=== PATIENT | female | born 1970 | race Caucasian/White ===

== ENCOUNTER 2019-07-18 01:46 | Inpatient (IN) | payer OTHER ==
[2019-07-18] VITALS (9 sets, daily range): BP systolic 108–142; BP diastolic 55–95
[~2019-07-18] VITALS: Ht 162.5 cm; Wt 100.7 kg
[2019-07-18] MEDS ORDERED: OMEPRAZOLE40 MG PO (02:21)
[2019-07-18] MEDS ORDERED: VENLAFAXINE HYD75 M3 PO (02:22)
--- NOTE | 2019-07-18 02:42 | NUR ---
[employer] CONTACTED FOR MEDICATION PER EMAR.
[2019-07-18 02:43] LABS: BASO # 0.1 10*3/uL (0.0-0.1); BASO % 0.7 % (0.0-1.0); EOS # 0.2 10*3/uL (0.0-0.4); EOS % 2.6 % (1.0-4.0); HEMATOCRIT 40.3 % (37.0-47.0); HEMOGLOBIN 12.8 g/dl (12.0-16.0); LYMPH # 2.3 10*3/uL (1.3-4.4); LYMPH % 27.3 % (27.0-41.0); MEAN CELL VOLUME 94.2 fl (81.0-99.0); MEAN CORPUSCULAR HGB 29.9 pg (27.0-31.0); MEAN CORPUSCULAR HGB CONC 31.8 g/dl (33.0-37.0); MEAN PLATELET VOLUME 9.4 fl (9.6-12.3); MONO # 0.6 10*3/uL (0.1-1.0); MONO % 7.6 % (3.0-9.0); NEUT # 5.1 10*3/uL (2.3-7.9); NEUT % 61.6 % (47.0-73.0); PLATELET COUNT AUTOMATED 328 10*3/uL (130-400); RED BLOOD COUNT 4.28 10*6/uL (4.10-5.10); RED CELL DISTRI WIDTH 13.5 % (0-14.5); WHITE BLOOD COUNT 8.3 10*3/uL (4.8-10.8)
[2019-07-18 02:57] LABS: ALBUMIN 3.1 gm/dl (3.1-4.5); ALKALINE PHOSPHATASE 131 U/L (45-117); BUN 11 mg/dl (7-24); CHLORIDE 107 mmol/L (98-107); CREATININE 0.82 mg/dL (0.55-1.02); POTASSIUM 3.6 mmol/L (3.5-5.1); SGOT/AST 12 IU/L (3-35); SGPT/ALT 19 U/L (12-78); SODIUM 139 mmol/L (136-145); TOTAL PROTEIN 7.9 gm/dL (6.4-8.2)
--- NOTE | 2019-07-18 05:00 | NUR ---
Time: 0500 A 48 year old f admitted to under services of EDA HAWTHORNE DO. Pt. arrived via [facility] from ER. Chief complaint: abscess right breast since 06/03. on 3 different out-pt antibiotics without improvement. JEREMIAH CHRIS
--- NOTE | 2019-07-18 05:52 | NUR ---
medicated with morphine iv per prn order for complaints of right breast pain rating a 9. call light within reach. will monitor for effectiveness
--- NOTE | 2019-07-18 06:30 | NUR ---
morphine effective. sleeping. iv fluids maintained. call light within reach
--- NOTE | 2019-07-18 07:09 | NUR ---
RODRIGO FARRIS [id number] Please refer to the physician's history and physical for past medical history, comorbid conditions, and allergies. Diagnosis: CELLULITIS OF RIGHT BREAST Faustino Score: 20,LOW OR NO RISK WOUND DESCRIPTIONS: Wound Number: 1 Location of the wound: right breast Thickness: Full Size: 9.0cm x 9.5cm x <0.1cm Tunneling: none Undermining: none Sinus Tract: none Presence of Exudate: none Amount: None Color: Red, yellow Odor: None Periwound Skin Appearance: Erythema, fluctuance Wound edges: closed Pain (associated with wound): tender to touch How does patient state this happened? pt stated this started back on and has been on multiple antibiotics Patient stated that she or her will be able to care for the area upon her return home if area needs packed. Surface the patient is resting on: Isoflex SKIN PREVENTION RECOMMENDATION: 1. Pressure redistribution support surface as appropriate 2. Elevate heels 3. Remove boots/TEDS every shift and reapply 4. Head of bed 30 degrees as tolerated 5. Assess nutrition and hydration 6. Manage moisture 7. Avoid the use of containment devices while in bed 8. Use absorptive products on surfaces limit layers of linens on bed 9. Turn and reposition every 1-2 hours in bed and every 1 hour in chair as tolerated 10. Weight shifts every 15 minutes while up in chair 11. Offloading with pillows or device to keep heels elevated off bed 12. Monitor skin at least every shift 13. Inspect under medical devices twice a day WOUND TREATMENT RECOMMENDATIONS: Dr. Eason is already on consult may need I&D. Warm compresses QID. Patient is requesting to follow up in the wound care center on sunday after 2pm.
--- NOTE | 2019-07-18 07:59 | NUR ---
DR. BARBA NOTIFIED OF CONSULT AND WAS IN TO SEE THE PATIENT.
--- NOTE | 2019-07-18 09:09 | NUR ---
Dr. Mckeon notified of wound care recommendations.
--- NOTE | 2019-07-18 20:10 | NUR ---
[id number] SITTING UP IN BED. DRESSING TO RIGHT BREAST DRY & INTACT. LINENS CHANGED BY THIS RN WHILE PATIENT UP TO BATHROOM. PT. DENIES PAIN OR DISCOMFORT AT THIS TIME. CALL LIGHT WITHIN REACH.
--- NOTE | 2019-07-18 22:55 | NUR ---
RESTING IN BED WITH EYES CLOSED. VOICES NO C/O PAIN OR DISCOMFORT AT THIS TIME. CALL LIGHT WITHIN REACH.
[2019-07-19] VITALS: BP 108/68
--- NOTE | 2019-07-19 06:00 | NUR ---
AROUSES EASILY FOR PO MEDICATION. DENIES PAIN OR DISCOMFORT AT THIS TIME. CALL LIGHT WITHIN REACH.
[2019-07-19 06:22] LABS: BASO % 0.6 % (0.0-1.0); EOS # 0.2 10*3/uL (0.0-0.4); EOS % 3.1 % (1.0-4.0); HEMATOCRIT 40.2 % (37.0-47.0); HEMOGLOBIN 12.9 g/dl (12.0-16.0); LYMPH # 1.3 10*3/uL (1.3-4.4); LYMPH % 19.6 % (27.0-41.0); MEAN CELL VOLUME 94.8 fl (81.0-99.0); MEAN CORPUSCULAR HGB 30.4 pg (27.0-31.0); MEAN CORPUSCULAR HGB CONC 32.1 g/dl (33.0-37.0); MEAN PLATELET VOLUME 9.5 fl (9.6-12.3); MONO # 0.5 10*3/uL (0.1-1.0); MONO % 6.6 % (3.0-9.0); NEUT # 4.8 10*3/uL (2.3-7.9); NEUT % 69.8 % (47.0-73.0); PLATELET COUNT AUTOMATED 306 10*3/uL (130-400); RED BLOOD COUNT 4.24 10*6/uL (4.10-5.10); RED CELL DISTRI WIDTH 13.5 % (0-14.5); WHITE BLOOD COUNT 6.9 10*3/uL (4.8-10.8)
[2019-07-19 06:39] LABS: BUN 10 mg/dl (7-24); CHLORIDE 109 mmol/L (98-107); CREATININE 0.77 mg/dL (0.55-1.02); POTASSIUM 4.4 mmol/L (3.5-5.1); SODIUM 139 mmol/L (136-145)
[2019-07-19 10:00] VITALS: BP 122/78
[2019-07-19] MEDS ORDERED: NORCO 5-325 TA1 EACH PO (11:56)
[2019-07-19 12:00] VITALS: BP 121/67
--- NOTE | 2019-07-19 12:36 | NUR ---
PT DISCHARGED AT THIS TIME. IV REMOVED AND PRESSURE DRESSING APPLIED. VERBALIZED UNDERSTANDING OF DISCHARGE INSTRUCTIONS.
== END 2019-07-19 12:36 | disposition home or self-care (01) | DRG 584 ==
LOC: ED 01:46 → EDHOLD 03:55 → 5E 03:55
PROVIDERS: Emergency Medicine; Internal Medicine; ADMIT Internal Medicine
PROC: 0H9T0ZZ Drainage of Right Breast, Open Approach (ICD-10-PCS; principal; 2019-07-18)
DX: N61.1 Abscess of the breast and nipple (principal); E44.1 Mild protein-calorie malnutrition; G43.909 Migraine, unspecified, not intractable, without status migrainosus; K21.9 Gastro-esophageal reflux disease without esophagitis; R03.0 Elevated blood-pressure reading, without diagnosis of hypertension; Z68.37 Body mass index [BMI] 37.0-37.9, adult; Z87.891 Personal history of nicotine dependence; Z82.49 Family history of ischemic heart disease and other diseases of the circulatory system

== ENCOUNTER 2019-08-16 21:25 | Emergency (ER) | payer OTHER ==
[~2019-08-16] VITALS: Ht 162.5 cm; Wt 100.7 kg
[~2019-08-16 21:25] MED LIST: NORCO 5-325 TA1 EACH PO; OMEPRAZOLE40 MG PO; VENLAFAXINE HYD75 M3 PO
[2019-08-16] MEDS ORDERED: CEPHALEXIN500 M1 PO (22:04)
== END 2019-08-16 23:27 | disposition home or self-care (01) ==
LOC: ED 21:25
DX: N61.0 Mastitis without abscess (principal); F41.9 Anxiety disorder, unspecified; F32.9 Major depressive disorder, single episode, unspecified; K21.9 Gastro-esophageal reflux disease without esophagitis; Z79.899 Other long term (current) drug therapy

== ENCOUNTER 2020-07-23 00:52 | Emergency (ER) | payer OTHER ==
[~2020-07-23] VITALS: Ht 160 cm; Wt 97.1 kg
[~2020-07-23 00:52] MED LIST changes: +CEPHALEXIN500 M1 PO
[2020-07-23] MEDS ORDERED: SEPTDS PO (01:10)
== END 2020-07-23 01:35 | disposition home or self-care (01) ==
LOC: ED 00:52
DX: N61.1 Abscess of the breast and nipple (principal); F41.9 Anxiety disorder, unspecified; F32.9 Major depressive disorder, single episode, unspecified; K21.9 Gastro-esophageal reflux disease without esophagitis; Z79.899 Other long term (current) drug therapy; Z98.890 Other specified postprocedural states; Z87.891 Personal history of nicotine dependence